=== PATIENT | male | born 1965 | race African-American/Black ===

== ENCOUNTER 2021-10-11 09:15 | Emergency (ER) | payer BC, OTHER, SELFPAY ==
--- NOTE | ~2021-10-11 | XR_ITS ---
EXAMINATION: XR knee LT 3V DATE: 10/11/2021 09:34 INDICATION: Generalized left knee pain post fall down steps TECHNIQUE: AP, oblique and crosstable lateral views of the left knee were obtained. COMPARISON: None. FINDINGS: Alignment is normal. No fracture. Joint spaces appear normal on nonweightbearing imaging. Enthesophy ainsley at the proximal pole of the patella. No joint effusion/layering lipohemarthrosis. Soft tissues ar e unremarkable. IMPRESSION: 1. No left knee joint effusion or acute osseous abnormality. Reviewed, dictated and finalized at location A.
[2021-10-11 09:18] VITALS: BP 168/93; PULSE 79; RESP 18; TEMP 36.3; O2SAT 98
--- NOTE | 2021-10-11 09:23 | ED.FALL ---
HPI - Fall General Chief Complaint: Fall Stated Complaint: Fall Time Seen by Provider: 10/11/21 09:17 History of Present Illness HPI Narrative: 56-year-old male presents the emergency room for evaluation of injury to his left knee. He states he lost his footing and fell down 3 stairs. Is unable to recall exactly how the injury occurred, states he either directly landed on the knee or twisted it when falling. Denies any other injuries. Pain is worse with ambulation. Describes pain as a sharp stabbing pain when his knee is in full extension. Related Data Allergies Allergy/AdvReac Type Severity Reaction Status Date / Time No Known Allergies Allergy Verified 10/11/21 09:24 Review of Systems Review of Systems: CONSTITUTIONAL: Denies fever, chills, or sweats. EYES: Denies visual changes, redness, or discharge. ENT: Denies rhinorrhea, congestion, sore throat, or otalgia. CARDIOVASCULAR: Denies chest pain, palpitations, or edema. RESPIRATORY: Denies cough or dyspnea. GASTROINTESTINAL: Denies abdominal pain, nausea, vomiting, or diarrhea. GENITOURINARY: Denies dysuria or hematuria. SKIN: Denies rash or itching. MUSCULOSKELETAL: Reports left knee pain NEUROLOGIC: Denies headache, numbness, dizziness, or weakness. PSYCHIATRIC: Denies anxiety or depression. Exam Narrative: GENERAL: Well-appearing, well-nourished, no physical limitations, and in no acute distress. HEAD: Normocephalic, atraumatic. EYES: Conjunctivae normal, PERRLA and EOMI. CHEST: Clear to auscultation. No respiratory distress. No wheezes rales or rhonchi. No tenderness. HEART: Regular rate and rhythm. No murmur heard. Normal peripheral pulses. EXTREMITIES: Left knee: Tenderness to the medial surface. No no soft tissue swelling. No acute bony abnormality. Full range of motion. Anterior posterior drawer signs negative. Pain elicited with valgus pressure. No joint instability. Jose's test is negative SKIN: Warm, dry, no rash. No noted wounds NEURO: No focal deficits. Alert and oriented x3. MAEW. CN's II-XI intact bilaterally, normal gait PSYCH: Cooperative. Normal mood and affect. MDM - Fall Imaging Data Radiologist's impression: Impressions Knee X-Ray 07/07/22 09:39 IMPRESSION: 1. No left knee joint effusion or acute osseous abnormality. Discharge Plan Discharge Clinical Impression: Left knee injury Patient Disposition: Home, Self-Care Condition: Stable Instructions: Antibiotic Form, Knee Pain (ED) Additional Instructions: Recommend getting a knee compression device. Wear that during the day and at night as tolerated. Keep your leg elevated. May ice the injured area 15 minutes at a time for the first 48 hours following your injury. Recommend rest, limit your physical activity for the next 5 to 7 days. Prescriptions: New meloxicam 15 mg tablet 15 mg PO DAILY Qty: 14 0RF Follow-up/Referrals: Lc,Grey Parmar MD [Non-Staff] - Time of Disposition: 09:52
[2021-10-11] MEDS: KETOROLAC (*BKC) 60 MG/2 ML VIAL IM (10:10)
== END 2021-10-11 10:10 | disposition home or self-care (01) ==
LOC: ANHED 09:58
PROVIDERS: Emergency Provider Nurse Practitioner Family
DX: S89.92XA Unspecified injury of left lower leg, initial encounter (principal); W10.9XXA Fall (on) (from) unspecified stairs and steps, initial encounter
CPT/HCPCS: 73562; 96372; 99283; J1885